=== PATIENT | female | born 2000 | race Caucasian/White ===

== ENCOUNTER 2020-05-12 05:03 | Emergency (ER) | payer OTHER ==
[2020-05-12] MEDS ORDERED: NA CHLORIDE 0.9% 1,000 ML ONE (05:59)
[2020-05-12] MEDS ORDERED: ONDANSETRON 4 MG/2 ML VIAL ONE (05:59)
[2020-05-12] MEDS ORDERED: MORPHINE 4 MG/ML SYR ONE (05:59)
[2020-05-12] MEDS ORDERED: TETANUS & DIPHTHERIA TOX,ADULT 0.5 ML VIAL ONE (06:00)
[2020-05-12 06:16] LABS: Absolute Lymphocytes (CBC) 3.5 K/uL (0.7-4.9); Basophils % 0.5 % (0-1.3); Hematocrit 40.3 % (36.0-45.0); Lymphocytes % 20.9 % (15.3-44.8); MPV 7.9 fL (7.6-11.3); RBC Red Blood Cell Count 4.51 M/uL (3.86-4.86)
[2020-05-12 06:33] LABS: BUN Blood Urea Nitrogen 15 mg/dL (7-18); Bicarbonate 24 mmol/L (21-32); Glucose Level 96 mg/dL (74-106); Potassium 3.8 mmol/L (3.5-5.1); Sodium Level 140 mmol/L (136-145)
[2020-05-12 06:51] LABS: Urine Blood 1+ (NEG); Urine Glucose NEGATIVE (NEG); Urine Protein NEGATIVE (NEG); Urine Specific Gravity >1.030 (1.005-1.030); Urine pH 5.5 (5.0-7.0)
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
[2020-05-12 08:04] VITALS: TEMP 99.2
[2020-05-12 08:05] VITALS: BP 103/52; O2SAT 99
== END 2020-05-12 07:59 | disposition home or self-care (01) ==
LOC: ER 05:03
DX: S30.1XXA Contusion of abdominal wall, initial encounter (principal); S90.31XA Contusion of right foot, initial encounter; N39.0 Urinary tract infection, site not specified; V47.5XXA Car driver injured in collision with fixed or stationary object in traffic accident, initial encounter; Z23 Encounter for immunization
CPT/HCPCS: 87088; 85025; 87086; 80048; 36415; 86900; 86850; 81025; 82565; 86901; 81003; 72131; 71260; 74177; 73630; 90714; Q9967; J7030; J2405; 90471; 96361; 96374; 96375; 99284

== ENCOUNTER 2021-10-02 00:10 | Emergency (ER) | payer BC ==
--- OUTSIDE RECORDS SUMMARY | 2021-10-02 00:13 | XMS REPORT | Continuity of Care Document ---
:2000 Author Organization [facility] t Address [address] [place] [address] [address] [place] [address] Care Team Providers Name Role Phone PCP, DOES NOT HAVE A Primary Care Physician Unavailable Chapito PONCE III Attending Clinician Unavailable Aleks RN, D Attending Clinician Unavailable Only, Db Test Attending Clinician Unavailable Sonya PARRAP, J Attending Clinician Payers Payer Name Policy Type Policy Number Effective Date Expiration Date S florinda [facility] [id number] 2020 00:00:00 Problems This patient has no known problems. Allergies, Adverse Reactions, Alerts Allergy Allergy Status Severity Reaction(s) Onset Inactive Treating Comm ents Source Name Type Date Date Clinician NO KNOWN Drug Active [facility] ALLERGIE [facility] Social History Social Habit Start Date Stop Date Quantity Comments Source Exposure to Yes [facility] SARS-CoV-2 (event) [facility] Sex Assigned At 2000 2000 [facility] 00:00:00 00:00:00 [facility] Smoking Status Start Date Stop Date Source Unknown if ever smoked [facility] Medications This patient has no known medications. Procedures This patient has no known procedures. Encounters Start End Encounter Admission Attending Care Care Encounter Source Date/Time Date/Time Type Type Clinicians Facility Department ID 2021-09-29 2021-09-29 Outpatient R KING DARCIE [facility] [id number] [facility] 15:00:00 15:45:01 TYRONE [facility] 2021-03-27 2021-03-27 Telephone FABIO Fink [id number] [facility] 00:00:00 00:00:00 Skyla CHARLES [id number] i ty of [facility] [id number] Onel as [id number] [address] 2021-03-25 2021-03-25 Laboratory Only, Ang Db Test COMB [id number] [facility] 18:04:26 18:14:26 Only Sonya, [id number] [id number] Onel as Ankit?Blea [id number] [address] Medical Office Building Results This patient has no known results.
[2021-10-02 01:28] LABS: Urine Blood Negative (Negative); Urine Glucose Negative (Negative); Urine Protein 1+ (Negative); Urine Specific Gravity >=1.030 (1.005-1.030)
[2021-10-02 01:30] LABS: Absolute Lymphocytes (CBC) 1.2 K/uL (0.7-4.9); Hematocrit 41.6 % (36.0-45.0); Lymphocytes % 13.4 % (15.3-44.8); MPV 7.9 fL (7.6-11.3); RBC Red Blood Cell Count 4.55 M/uL (3.86-4.86)
[2021-10-02 01:33] LABS: Urine Specific Gravity/Preg >1.030 (1.005-1.030)
[2021-10-02 01:50] LABS: ALT/SGPT 44 U/L (12-78); AST/SGOT 23 U/L (15-37); Albumin 3.9 g/dL (3.4-5.0); Alkaline Phosphatase 69 U/L (45-117); BUN Blood Urea Nitrogen 8 mg/dL (7-18); Bicarbonate 21 mmol/L (21-32); Bilirubin Total 0.3 mg/dL (0.2-1.0); Glucose Level 86 mg/dL (74-106); Lipase 59 U/L (73-393); Potassium 3.4 mmol/L (3.5-5.1); Protein, Total 7.9 g/dL (6.4-8.2); Sodium Level 136 mmol/L (136-145)
--- NOTE | 2021-10-02 03:35 | EDPHYS ---
Physician Documentation [facility] Name: Jo Garcia Age: 21 yrs Sex: Female : 2000 Arrival Date: 10/02/2021 Time: 00:12 Bed 18 Private MD: ED Physician Felix Perez HPI: 10/02 07:57 This 21 yrs old Female presents to ER via Ambulatory with complaints of kdr Abdominal Pain, diarrhea. 07:57 The patient presents with abdominal pain in the epigastric area, that is diffuse. kdr 07:58 Onset: The symptoms/episode began/occurred gradually, this morning, 3 month(s) ago. The kdr symptoms do not radiate. Associated signs and symptoms: none. Pertinent positives: nausea and vomiting, Pertinent negatives: blood in stools, chest pain, constipation, diarrhea, dysuria, fever, headache, hematuria, vaginal discharge, vomiting. The symptoms are described as achy, burning, crampy. Modifying factors: The symptoms are alleviated by nothing, the symptoms are aggravated by nothing. Severity of pain: At its worst the pain was very mild mild in the emergency department the pain is unchanged. 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 - Social history:: Smoking status: Reported history of juuling and/or vaping. ROS: 07:58 Constitutional: Negative for fever, chills, and weight loss, Eyes: Negative for injury, kdr pain, redness, and discharge, Neck: Negative for injury, pain, and swelling, Cardiovascular: Negative for chest pain, palpitations, and edema, Respiratory: Negative for shortness of breath, cough, wheezing, and pleuritic chest pain, Back: Negative for injury and pain, : Negative for injury, bleeding, discharge, and swelling, MS/Extremity: Negative for injury and deformity, Skin: Negative for injury, rash, and discoloration, Neuro: Negative for headache, weakness, numbness, tingling, and seizure activity. Psych: Negative for depression, anxiety, suicide ideation, homicidal ideation, and hallucinations, Allergy/Immunology: Negative for hives, rash, and allergies, Endocrine: Negative for neck swelling, polydipsia, polyuria, polyphagia, and marked weight changes, Hematologic/Lymphatic: Negative for swollen nodes, abnormal bleeding, and unusual bruising. 07:58 Abdomen/GI: Positive for abdominal pain, nausea and vomiting, Negative for rectal pain. Exam: 07:58 Constitutional: This is a well developed, well nourished patient who is awake, alert, kdr and in no acute distress. Head/Face: Normocephalic, atraumatic. Eyes: Pupils equal round and reactive to light, extra-ocular motions intact. Lids and lashes normal. Conjunctiva and sclera are non-icteric and not injected. Cornea within normal limits. Periorbital areas with no swelling, redness, or edema. Neck: Trachea midline, no thyromegaly or masses palpated, and no cervical lymphadenopathy. Supple, full range of motion without nuchal rigidity, or vertebral point tenderness. No Meningismus. Chest/axilla: Normal chest wall appearance and motion. Nontender with no deformity. No lesions are appreciated. Cardiovascular: Regular rate and rhythm with a normal S1 and S2. No gallops, murmurs, or rubs. Normal PMI, no JVD. No pulse deficits. Respiratory: Lungs have equal breath sounds bilaterally, clear to auscultation and percussion. No rales, rhonchi or wheezes noted. No increased work of breathing, no retractions or nasal flaring. Back: No spinal tenderness. No costovertebral tenderness. Full range of motion. Skin: Warm, dry with normal turgor. Normal color with no rashes, no lesions, and no evidence of cellulitis. MS/ Extremity: Pulses equal, no cyanosis. Neurovascular intact. Full, normal range of motion. Neuro: Awake and alert, GCS 15, oriented to person, place, time, and situation. Cranial nerves II-XII grossly intact. Motor strength 5/5 in all extremities. Sensory grossly intact. Cerebellar exam normal. Normal gait. Psych: Awake, alert, with orientation to person, place and time. Behavior, mood, and affect are within normal limits. 07:58 Abdomen/GI: Inspection: abdomen appears normal, Bowel sounds: Palpation: soft, nontender. Vital Signs: 00:26 BP 117 / 66; Pulse 84; Resp 18; Temp 98.2; Pulse Ox 98% ; Weight 95.25 kg; Height 5 ft. al4 4 in. (162.56 cm); Pain 8/10; 04:01 BP 120 / 68; Pulse 81; Resp 20; Pulse Ox 98% on R/A; sf1 00:26 Body Mass Index 36.05 (95.25 kg, 162.56 cm) al4 MDM: 03:35 Patient medically screened. kdr 07:58 Data reviewed: vital signs, nurses notes, lab test result(s), EKG, radiologic studies. kdr 10/02 00:41 Order name: CBC with Diff; Complete Time: 03:24 kdr 10/02 00:41 Order name: CMP; Complete Time: 03:24 kdr 10/02 00:41 Order name: Lipase; Complete Time: 03:24 kdr 10/02 01:28 Order name: Urine Dipstick-Ancillary [facility] 10/02 01:29 Order name: Urine --Ancillary (enter results); Complete Time: 03:24 [facility] 10/02 00:41 Order name: IV Saline Lock; Complete Time: 01:55 kdr 10/02 00:41 Order name: Labs collected and sent; Complete Time: 01:55 kdr 10/02 01:29 Order name: Urine Dipstick-Ancillary (obtain specimen); Complete Time: 01:30 mw2 10/02 01:29 Order name: Urine Test (obtain specimen); Complete Time: 01:29 2 10/02 01:47 Order name: Quantitative Hcg; Complete Time: 03:24 kdr Administered Medications: No medications were administered Disposition Summary: 10/02/21 03:35 Discharge Ordered Location: Home kdr Problem: new kdr Symptoms: have improved kdr Condition: Stable kdr Diagnosis - Abdominal pain, Generalized kdr - Lower abdominal pain, unspecified kdr - Threatened kdr Followup: kdr - With: Private Physician - When: 48 Hours - Reason: If symptoms return, Further diagnostic work-up, Recheck today's complaints, Continuance of care, Repeat Beta-HCG (48 Hours), Re-evaluation by your physician Discharge Instructions: - Discharge Summary Sheet kdr - Threatened Miscarriage kdr - Abdominal Pain, Adult, Kaln-yd-Etlm kdr Forms: - Medication Reconciliation Form kdr - Thank You Letter kdr Signatures: Dispatcher MedHoClovis Baptist HospitalFelix Hyman MD MD kdr Sonal Cervantes mw2 Aidan Hernadez al4
--- NOTE | 2021-10-02 03:35 | ER ---
Nurse's Notes [facility] Name: Jo Garcia Age: 21 yrs Sex: Female : 2000 Arrival Date: 10/02/2021 Time: 00:12 Bed 18 Private MD: Diagnosis: Abdominal pain, Generalized;Lower abdominal pain, unspecified;Threatened Presentation: 10/02 00:26 Chief complaint: Patient states: cramping and diarrhea "every 5 minutes" from 5am to al4 5pm. Coronavirus screen: Vaccine status: Patient reports receiving the 2nd dose of the covid vaccine. Ebola Screen: No symptoms or risks identified at this time. Initial Sepsis Screen: Does the patient meet any 2 criteria? No. Patient's initial sepsis screen is negative. Does the patient have a suspected source of infection? No. Patient's initial sepsis screen is negative. Risk Assessment: Do you want to hurt yourself or someone else? Patient reports no desire to harm self or others. Onset of symptoms was September 29, 2021. 00:26 Method Of Arrival: Ambulatory al4 00:26 Acuity: EVELYN 3 al4 Triage Assessment: 00:28 General: Appears in no apparent distress. uncomfortable, Behavior is calm, cooperative, al4 appropriate for age. Pain: Complains of pain in abdomen. Neuro: Level of Consciousness is awake, alert, obeys commands, Oriented to person, place, time, situation. Cardiovascular: Capillary refill < 3 seconds Patient's skin is warm and dry. Respiratory: Airway is patent Respiratory effort is unlabored, Respiratory pattern is regular. GI: Reports diarrhea, nausea. Musculoskeletal: Circulation, motion, and sensation intact. 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 - Social history:: Smoking status: Reported history of juuling and/or vaping. Screenin:55 Abuse screen: Denies threats or abuse. Nutritional screening: No deficits noted. sf1 Tuberculosis screening: No symptoms or risk factors identified. Fall Risk None identified. Assessment: 03:34 General: Appears in no apparent distress. Behavior is calm, cooperative, appropriate sf1 for age. GI: Reports diarrhea, nausea. Vital Signs: 00:26 BP 117 / 66; Pulse 84; Resp 18; Temp 98.2; Pulse Ox 98% ; Weight 95.25 kg; Height 5 ft. al4 4 in. (162.56 cm); Pain 8/10; 04:01 BP 120 / 68; Pulse 81; Resp 20; Pulse Ox 98% on R/A; sf1 00:26 Body Mass Index 36.05 (95.25 kg, 162.56 cm) al4 ED Course: 00:12 Patient arrived in ED. es 00:28 Triage completed. al4 00:30 Arm band placed on right wrist. al4 00:32 Felix Perez MD is Attending Physician. kdr 01:55 Therese Green, NATY is Primary Nurse. sf1 01:55 Patient has correct armband on for positive identification. sf1 01:55 Inserted saline lock: 20 gauge in right antecubital area, using aseptic technique. sf1 Blood collected. 03:34 No provider procedures requiring assistance completed. IV discontinued, intact, sf1 bleeding controlled, No redness/swelling at site. Pressure dressing applied. Administered Medications: No medications were administered Outcome: 03:34 Discharged to home ambulatory. sf1 03:34 Condition: good 03:34 Discharge instructions given to patient, Instructed on discharge instructions, follow up and referral plans. Demonstrated understanding of instructions, follow-up care. 03:35 Discharge ordered by . kdr 04:02 Patient left the ED. sf1 Signatures: Felix Perez MD MD kdr Salyer, Edna es Ledbetter, Alexis al4 Therese Green RN RN sf1 Corrections: (The following items were deleted from the chart) 00:29 00:28 GI: Reports nausea, al4 al4
[2021-10-02 05:08] VITALS: TEMP 98.2; O2SAT 98
[2021-10-02 05:09] VITALS: BP 120/68
== END 2021-10-02 04:02 | disposition home or self-care (01) ==
LOC: ER 00:10
DX: O20.0 Threatened abortion (principal); Z3A.00 Weeks of gestation of pregnancy not specified
CPT/HCPCS: 36415; 80053; 81003; 81025; 83690; 84702; 85025; 99283

== ENCOUNTER 2021-10-03 23:22 | Emergency (ER) | payer BC ==
--- OUTSIDE RECORDS SUMMARY | 2021-10-03 23:24 | XMS REPORT | Continuity of Care Document ---
:2000 Author Organization [facility] t Address [address] [place] [address] Care Team Providers Name Role Phone Pcp, Does Not Have A Primary Care Physician Chapito PONCE III Attending Clinician Unavailable Aleks ALFONSO, Rickie Attending Clinician Unavailable Only, Db Test Attending Clinician Unavailable Sonya JORDAN, J Attending Clinician Payers Payer Name Policy Type Policy Number Effective Date Expiration Date S [facility] [id number] 2020 00:00:00 Problems This patient has no known problems. Allergies, Adverse Reactions, Alerts Allergy Allergy Status Severity Reaction(s) Onset Inactive Treating Comm ents Source Name Type Date Date Clinician NO KNOWN Drug Active [facility] ALLERGIE Class [facility] Social History Social Habit Start Date Stop Date Quantity Comments Source Exposure to Yes [facility] SARS-CoV-2 (event) [facility] Sex Assigned At 2000 2000 [facility] 00:00:00 00:00:00 [facility] Smoking Status Start Date Stop Date Source Unknown if ever smoked [facility] Medications This patient has no known medications. Procedures This patient has no known procedures. Encounters Start End Encounter Admission Attending Care Care Encounter Source Date/Time Date/Time Type Type Clinicians Facility Department ID 2021-09-29 2021-09-29 Outpatient R KING DARCIE [facility] [id number] [facility] 15:00:00 15:45:01 TYRONE [facility] 2021-03-27 2021-03-27 Telephone FABIO Fink [id number] [facility] 00:00:00 00:00:00 Skyla D MELVIN [id number] i ty of [facility] [id number] Onel as [id number] [address] 2021-03-25 2021-03-25 Laboratory Only, Ang Db Test [facility] 1.2.8 [id number] [id number] [facility] 18:04:26 18:14:26 Only Kely Hassan [facility] [id number] [facility] [id number] Onel as Ankit?Blea [id number] [address] Medical Office Building Results This patient has no known results.
--- NOTE | 2021-10-04 00:57 | ER ---
Nurse's Notes [facility] Name: Jo Garcia Age: 21 yrs Sex: Female : 2000 Arrival Date: 10/03/2021 Time: 23:25 Bed 11 Private MD: Diagnosis: Less than 8 weeks gestation of -encounter for beta hcg lab test Presentation: 10/03 23:53 Chief complaint: Patient states: I came to the ER 3 days ago and the told me to ld1 come back and get my hcg level rechecked. Coronavirus screen: At this time, the client does not indicate any symptoms associated with coronavirus-19. Ebola Screen: No symptoms or risks identified at this time. Initial Sepsis Screen: Does the patient meet any 2 criteria? No. Patient's initial sepsis screen is negative. Does the patient have a suspected source of infection? No. Patient's initial sepsis screen is negative. Risk Assessment: Do you want to hurt yourself or someone else? Patient reports no desire to harm self or others. Onset of symptoms was October 03, 2021. 23:53 Method Of Arrival: Ambulatory ld1 23:53 Acuity: EVELYN 4 ld1 Triage Assessment: 23:54 General: Appears in no apparent distress. comfortable, Behavior is calm, cooperative, ld1 appropriate for age. Pain: Denies pain. EENT: No signs and/or symptoms were reported regarding the EENT system. Neuro: Level of Consciousness is awake, alert, obeys commands, Oriented to person, place, time, situation. Cardiovascular: Capillary refill < 3 seconds Patient's skin is warm and dry. Respiratory: Airway is patent Respiratory effort is even, unlabored, Respiratory pattern is regular, symmetrical. GI: Abdomen is flat, non-distended. : No signs and/or symptoms were reported regarding the genitourinary system. Derm: No signs and/or symptoms reported regarding the dermatologic system. Musculoskeletal: No signs and/or symptoms reported regarding the musculoskeletal system. 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 - Social history:: Smoking status: Reported history of juuling and/or vaping. Patient/guardian denies using alcohol, street drugs. Screenin/21 00:23 Abuse screen: Denies threats or abuse. Nutritional screening: No deficits noted. vc1 Tuberculosis screening: No symptoms or risk factors identified. Fall Risk None identified. Assessment: 00:23 General: Appears in no apparent distress. comfortable, Behavior is calm, cooperative, vc1 appropriate for age. Neuro: Level of Consciousness is awake, alert, obeys commands, Oriented to person, place, time, situation, Appropriate for age. Cardiovascular: No deficits noted. Respiratory: No deficits noted. GI: No deficits noted. Vital Signs: 10/03 23:53 BP 121 / 72; Pulse 79; Resp 18; Temp 97.9(TE); Pulse Ox 100% on R/A; Weight 96.16 kg; ld1 Height 5 ft. 4 in. (162.56 cm); Pain 0/10; 23:53 Body Mass Index 36.39 (96.16 kg, 162.56 cm) ld1 ED Course: 23:25 Patient arrived in ED. es 23:39 Gaudencio Ellsworth NP is PHCP. pm1 23:39 Pawan Alvarado DO is Attending Physician. pm1 23:54 Triage completed. ld1 23:54 Arm band placed on right wrist. ld1 10/04 00:24 Patient has correct armband on for positive identification. Bed in low position. Call vc1 light in reach. Administered Medications: No medications were administered Outcome: 00:56 Discharge ordered by . pm1 01:12 Patient left the ED. vc1 Signatures: Minoo Albarado Patrick, NP SEISMOGRAPH OBSERVER pm1 Yi Bueno RN RN ld1 Tanna Licona RN RN vc1
--- NOTE | 2021-10-04 00:57 | EDPHYS ---
Physician Documentation [facility] Name: Jo Garcia Age: 21 yrs Sex: Female : 2000 Arrival Date: 10/03/2021 Time: 23:25 Bed 11 Private MD: ED Physician Pawan Alvarado HPI: 10/03 23:58 This 21 yrs old Female presents to ER via Ambulatory with complaints of pm1 Recheck hcg. 23:58 Patient presenting to the ER for requests repeat beta-hCG. Patient was seen here 2 days pm1 ago and was found to be . Patient presented to the ER for abdominal pain at that time. She was not aware of her . Patient with uncertain weeks of but states that first day of last menstrual cycle is August 30. Severity of symptoms: Pain is currently a 0 / 10. The patient has not experienced similar symptoms in the past. P1GO. Patient presenting to the ER here today with no complaints except for repeat beta-hCG prior beta-hCG was 200. 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 - Social history:: Smoking status: Reported history of juuling and/or vaping. Patient/guardian denies using alcohol, street drugs. ROS: 23:58 Constitutional: Negative for fever, chills, and weight loss, Cardiovascular: Negative pm1 for chest pain, palpitations, and edema, Respiratory: Negative for shortness of breath, cough, wheezing, and pleuritic chest pain, Abdomen/GI: Negative for abdominal pain, nausea, vomiting, diarrhea, and constipation, Back: Negative for injury and pain, : Negative for injury, bleeding, discharge, and swelling, MS/Extremity: Negative for injury and deformity, Skin: Negative for injury, rash, and discoloration, Neuro: Negative for headache, weakness, numbness, tingling, and seizure. 23:58 All other systems are negative. Exam: 23:58 Constitutional: This is a well developed, well nourished patient who is awake, alert, pm1 and in no acute distress. Head/Face: Normocephalic, atraumatic. 23:58 Back: No spinal tenderness. No costovertebral tenderness. Full range of motion. Skin: Warm, dry with normal turgor. Normal color with no rashes, no lesions, and no evidence of cellulitis. MS/ Extremity: Pulses equal, no cyanosis. Neurovascular intact. Full, normal range of motion. 23:58 Cardiovascular: Exam negative for acute changes, Rate: normal, Rhythm: regular, Pulses: no pulse deficits are appreciated. 23:58 Respiratory: Exam negative for acute changes, respiratory distress, shortness of breath. 23:58 Abdomen/GI: Exam negative for acute changes, Inspection: abdomen appears normal, Palpation: abdomen is soft and non-tender, in all quadrants. 23:58 Neuro: Exam negative for acute changes, Orientation: is normal, Mentation: is normal, Motor: is normal, moves all fours. Vital Signs: 23:53 BP 121 / 72; Pulse 79; Resp 18; Temp 97.9(TE); Pulse Ox 100% on R/A; Weight 96.16 kg; ld1 Height 5 ft. 4 in. (162.56 cm); Pain 0/10; 23:53 Body Mass Index 36.39 (96.16 kg, 162.56 cm) ld1 MDM: 23:58 Patient medically screened. pm1 03 00:53 Data reviewed: vital signs. Data interpreted: Pulse oximetry: on room air is 100 %. pm1 Interpretation: normal. Counseling: I had a detailed discussion with the patient and/or guardian regarding: the historical points, exam findings, and any diagnostic results supporting the discharge/admit diagnosis, lab results, the need for outpatient follow up, an OB/Gyne specialist, to return to the emergency department if symptoms worsen or persist or if there are any questions or concerns that arise at home. 00:53 Differential Diagnosis Early , ectopic , abdominal pain. ED course: pm1 Patient without abdominal pain or any complaints today except for repeat beta-hCG. Patient's beta-hCG from 2 days ago was 200 and today it is 400. No abdominal or pelvic pain no vaginal bleeding. Impression is early . 10/03 23:41 Order name: HCG-Quantitative; Complete Time: 00:51 pm1 Administered Medications: No medications were administered Disposition: 02:39 Co-signature as Attending Physician, Pawan Alvarado DO I agree with the assessment and ms3 plan of care. Disposition Summary: 10/04/21 00:56 Discharge Ordered Location: Home pm1 Problem: new pm1 Symptoms: have improved pm1 Condition: Stable pm1 Diagnosis - Less than 8 weeks gestation of - encounter for beta hcg lab test pm1 Followup: pm1 - With: Emergency Department - When: As needed - Reason: Worsening of condition Followup: pm1 - With: Private Physician - When: 2 - 3 days - Reason: Recheck today's complaints, Continuance of care, Re-evaluation by your physician Forms: - Medication Reconciliation Form pm1 - Thank You Letter pm1 - Antibiotic Education pm1 - Prescription Opioid Use pm1 Signatures: Dispatcher [employer] Gaudencio Stevens NP SHOVEL OILER pm1 Pawan Alvarado DO DO ms3 Yi Bueno RN RN ld1
[2021-10-04 04:41] VITALS: BP 121/72; TEMP 97.9; O2SAT 100
== END 2021-10-04 01:12 | disposition home or self-care (01) ==
LOC: ER 23:22
DX: Z32.01 Encounter for pregnancy test, result positive (principal)
CPT/HCPCS: 36415; 84702; 99281

== ENCOUNTER 2022-05-14 23:21 | Emergency (ER) | payer BC ==
--- OUTSIDE RECORDS SUMMARY | 2022-05-14 23:24 | XMS REPORT | Continuity of Care Document ---
:2000 Author Organization [facility] t Address [address] [place] [address] Care Team Providers Name Role Phone PCP, PATIENT DOES NOT HAVE A Primary Care Physician Unavaila Alirio Salguero Attending Clinician ALIRIO RODRIGEZ Attending Clinician Unavailable Provider, [facility] Attending Clinician Unavailable Alexus Chauhan Attending Clinician ALEXUS AMEZCUA Attending Clinician Unavailable Doctor Unassigned, [place] Attending Clinician Unavailable TYRONE PONCE III Attending Clinician Unavailable Payers Payer Name Policy Type Policy Number Effective Date Expiration Date S ource Problems Condition Condition Condition Status Onset Resolution Last Treating Co mments Source Name Details Category Date Date Treatment Clinician Date No known No known Disease Unive rs active active ity of problems problems [facility] Allergies, Adverse Reactions, Alerts Allergy Allergy Status Severity Reaction(s) Onset Inactive Treating Comm ents Source Name Type Date Date Clinician NO KNOWN Drug Active Univers ALLERGIE Class ity of S [facility] Social History Social Habit Start Date Stop Date Quantity Comments Source Exposure to 2022-03-19 2022-03-29 Not sure [facility]-CoV-2 00:00:00 14:49:00 [facility] (event) [place] Alcohol intake 2022-03-06 2022-03-06 [facility] of 00:00:00 00:00:00 non-drinker [facility] (finding) [place] Tobacco use and 2021-09-29 2021-09-29 Smokeless tobacco Un iversity of exposure 00:00:00 00:00:00 non-user [facility] Sex Assigned At [birth year] Universit y of 00:00:00 00:00:[address] [facility] Smoking Status Start Date Stop Date Source Never smoked tobacco [facility] Medications Ordered Filled Start Stop Current Ordering Indication Dosage Frequency Signature Comments Components Source Medication Medication Date Date Medication? Clinician (SIG) Name Name cefdinir 2021- Yes [id number] 600mg Take 2 [facility] 300 mg 03-29 capsules ity of capsule 00:00: 04:59 by mouth [place] 00 :00 in the [facility] for 10 days. cefdinir 2021- Yes [id number] 600mg Take 2 [facility] 300 mg 03-29 capsules ity of capsule 00:00: 04:59 by mouth [place] 00 :00 in the [facility] for 10 days. ciprofloxac 2021- Yes [id number] 2[drp] Place 2 Univers in HCl 0.3 8-21 08-29 Drops in ity of % opthalmic 00:00: 04:59 both eyes [place] drops 00 :00 every 4 Medical (four) Branch hours for 7 days. ciprofloxac 2021- Yes [id number] 2[drp] Place 2 Univers in HCl 0.3 8-21 08-29 Drops in ity of % opthalmic 00:00: 04:59 both eyes [place] drops 00 :00 every 4 Medical (four) Branch hours for 7 days. ciprofloxac 2021- Yes [id number] 2[drp] Place 2 Univers in HCl 0.3 8-21 08-29 Drops in ity of % opthalmic 00:00: 04:59 both eyes [place] drops 00 :00 every 4 Medical (four) Branch hours for 7 days. ondansetron Yes [id number] 4mg Take 1 Univers 4 mg tablet 3-16 tablet by ity of 00:00: mouth [place] 00 every 8 Medical (eight) Branch hours as needed for Nausea and Vomiting (N/V). ondansetron Yes [id number] 4mg Take 1 Univers 4 mg tablet 3-16 tablet by ity of 00:00: mouth [place] 00 every 8 Medical (eight) Branch hours as needed for Nausea and Vomiting (N/V). ondansetron 2-0 Yes [id number] 4mg Take 1 Univers 4 mg tablet 3-16 tablet by ity of 00:00: mouth [place] 00 every 8 Medical (eight) Branch hours as needed for Nausea and Vomiting (N/V). ondansetron 2021-0 Yes [id number] 4mg Take 1 Univers 4 mg tablet 3-16 tablet by ity of 00:00: mouth [place] 00 every 8 Medical (eight) Branch hours as needed for Nausea and Vomiting (N/V). ondansetron 2021-0 Yes [id number] 4mg Take 1 Univers 4 mg tablet 3-16 tablet by ity of 00:00: mouth [place] 00 every 8 Medical (eight) Branch hours as needed for Nausea and Vomiting (N/V). ondansetron 2021-0 Yes [id number] 4mg Take 1 Univers 4 mg tablet 3-16 tablet by ity of 00:00: mouth [place] 00 every 8 Medical (eight) Branch hours as needed for Nausea and Vomiting (N/V). Vital Signs Vital Name Observation Time Observation Value Comments Source Systolic blood 2022-03-29 19:50:00 119 mm[Hg] [facility] Diastolic blood 2022-03-29 19:50:00 77 mm[Hg] [facility] Heart rate 2022-03-29 19:50:00 86 /min [facility] Body temperature 2022-03-29 19:50:00 37.28 Marlyn [facility] Respiratory rate 2022-03-29 19:50:00 18 /min [facility] Body height 2022-03-29 19:50:00 162.6 cm [facility] Body weight 2022-03-29 19:50:00 96.163 kg [facility] BMI 2022-03-29 19:50:00 36.39 kg/m2 [facility] Oxygen saturation in 2022-03-29 19:50:00 98 /min [facility] Arterial blood by [facility] Pulse oximetry Branch Systolic blood 2022-03-06 17:26:00 115 mm[Hg] [facility] Diastolic blood 2022-03-06 17:26:00 76 mm[Hg] Unive rsity of pressure [facility] Heart rate 2022-03-06 17:26:00 88 /min [facility] Body temperature 2022-03-06 17:26:00 37.06 Marlyn [facility] 2022-03-06 17:26:00 16 /min [facility] Body height 2022-03-06 17:26:00 162.6 cm [facility] Body weight 2022-03-06 17:26:00 97.07 kg [facility] BMI 2022-03-06 17:26:00 36.73 kg/m2 [facility] Oxygen saturation in 2022-03-06 17:26:00 97 /min [facility] blood by [facility] Pulse oximetry Branch Procedures Procedure Date / Time Performed Performing Clinician [facility] e ASSIGNMENT OF BENEFITS 2022-03-06 17:21:57 Doctor Unassigned, No [facility] Encounters Start End Encounter Admission Attending Care Care Encounter Source Date/Time Date/Time Type Type Clinicians Facility Department ID 2022-03-29 2022-03-29 Urgent Huyenprbrenden, [facility] [id number] Univers 14:40:00 15:00:00 Care [facility] [employer] [id number] it y of [place] [id number] Onel as SEBASTIAN?BLEA [id number] [address] MEDICAL OFFICE BUILDING 2022-03-29 2022-03-29 Outpatient R RAIN [facility] [id number] Univers 14:40:00 14:40:[address] [facility] 2022-03-29 2022-03-29 Letter Provider, [facility] [id number] Univers 00:00:00 00:00:00 (Out) Ang [employer] [id number] it y of Urgent Care [facility] [id number] [place] SEBASTIAN?BLEA [id number] [address] MEDICAL OFFICE BUILDING 2022-03-06 2022-03-06 Urgent [facility] [id number] Univers 12:40:00 13:00:00 Care Alexus HEALTH [id number] i ty of [facility] [id number] Onel as SEBASTIAN?BLEA [id number] [address] MEDICAL OFFICE BUILDING 2022-03-06 2022-03-06 [facility] [id number] Univers 12:40:00 12:40:00 ALEXUS serranoy o f [facility] 2022-03-06 2022-03-06 Orders Doctor FABIO [id number] Univers 00:00:00 00:00:00 Only Unassigned, MELVIN [id number] ity of [place] [facility] [id number] Onel as [id number] [address] 2022-03-06 2022-03-06 Letter Provider, [facility] [id number] Univers 00:00:00 00:00:00 (Out) Ang Db HEALTH [id number] it y of Urgent Care [facility] [id number] [place] SEBASTIAN?BLEA [id number] [address] MEDICAL OFFICE BUILDING 2022-03-06 2022-03-06 Letter Provider, [facility] [id number] Univers 00:00:00 00:00:00 (Out) Ang Db HEALTH [id number] it y of Urgent Care [place] [id number] [place] SEBASTIAN?BLEA [id number] [address] MEDICAL OFFICE BUILDING 2021-09-29 2021-09-29 [facility] [id number] Univers 15:00:00 15:45:01 TYRONE navarrete of [facility] Results This patient has no known results.
[2022-05-15] MEDS ORDERED: MORPHINE 4 MG/ML SYR ONE (00:19)
[2022-05-15 00:24] LABS: Urine Blood Negative (Negative); Urine Glucose Negative (Negative); Urine Protein Negative (Negative)
--- NOTE | 2022-05-15 00:47 | ER ---
Nurse's Notes [facility] Name: Jo Garcia Age: 21 yrs Sex: Female : 2000 Arrival Date: 05/14/2022 Time: 23:23 Bed 5 Private MD: Diagnosis: Sprain of unspecified site of right knee, initial encounter Presentation: 05/14 23:32 Chief complaint: Patient states: "I think I dislocated my knee cap. I tripped and tw5 fell.". Coronavirus screen: Vaccine status: Patient reports receiving the 2nd dose of the covid vaccine. Adocia. Ebola Screen: Patient negative for fever greater than or equal to 101.5 degrees Fahrenheit, and additional compatible Ebola Virus Disease symptoms Patient denies exposure to infectious person. Patient denies travel to an Ebola-affected area in the 21 days before illness onset. Initial Sepsis Screen: Does the patient meet any 2 criteria? No. Patient's initial sepsis screen is negative. Does the patient have a suspected source of infection? No. Patient's initial sepsis screen is negative. Risk Assessment: Do you want to hurt yourself or someone else? Patient reports no desire to harm self or others. Onset of symptoms was May 14, 2022 at 11:00. 23:32 Method Of Arrival: Wheelchair tw5 23:32 Acuity: EVELYN 3 tw5 Triage Assessment: 23:34 General: Appears uncomfortable, obese, Behavior is anxious, crying. Pain: Complains of tw5 pain in right leg Pain currently is 10 out of 10 on a pain scale. Musculoskeletal: Range of motion: limited in right knee. 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 - Social history:: Smoking status: Reported history of juuling and/or vaping. Screenin/30 00:27 Abuse screen: Denies threats or abuse. Denies injuries from another. Nutritional as6 screening: No deficits noted. Tuberculosis screening: No symptoms or risk factors identified. Fall Risk None identified. Assessment: 00:28 General: Appears uncomfortable, Behavior is cooperative, crying. Pain: Complains of as6 pain in right knee. Neuro: Level of Consciousness is awake, alert, obeys commands, Oriented to person, place, time, situation. Respiratory: Respiratory effort is even, unlabored. Musculoskeletal: Swelling present in right leg Reports pain in right knee. Vital Signs: 05/14 23:32 BP 135 / 88; Pulse 94; Resp 22; Temp 98.4; Pulse Ox 99% on R/A; Weight 90.72 kg; Height tw5 5 ft. 4 in. (162.56 cm); Pain 04/25; 05/15 01:18 BP 126 / 86; Pulse 87; Resp 18 S; Pulse Ox 100% on R/A; as6 05/14 23:32 Body Mass Index 34.33 (90.72 kg, 162.56 cm) tw5 ED Course: 05/14 23:23 Patient arrived in ED. bp1 23:25 Martin Turcios PA is PHCP. cp 23:25 Gabriela Reagan MD is Attending Physician. cp 23:34 Triage completed. tw5 23:34 Arm band placed on right wrist. tw5 23:45 Patient has correct armband on for positive identification. Placed in gown. Bed in low mm9 position. Call light in reach. Side rails up X2. Adult w/ patient. Warm blanket given. Pulse ox on. NIBP on. 23:49 Jakub Mckeon, RN is Primary Nurse. as6 05/15 00:14 XRAY Tib Fib RIGHT In Process Unspecified. EDMS 00:14 XRAY Knee RIGHT 3 view In Process Unspecified. EDMS 00:46 Sajan Acosta MD is Referral Physician. cp 01:19 No provider procedures requiring assistance completed. Patient did not have IV access as6 during this emergency room visit. Crutch training done. Knee immobilizer applied on right knee. Administered Medications: 00:27 Drug: morphine 8 ml Route: IM; Site: right vastus lateralis; as6 01:19 Follow up: Response: No adverse reaction as6 Medication: 00:28 VIS not applicable for this client. as6 Outcome: 00:46 Discharge ordered by . cp 01:14 Patient left the ED. mw2 01:19 Discharged to home via wheelchair, with family. as6 01:19 Condition: stable 01:19 Discharge instructions given to patient, family, Instructed on discharge instructions, follow up and referral plans. medication usage, crutch walking, Demonstrated understanding of instructions, follow-up care, medications, crutch walking, Prescriptions given X 1. Signatures: Dispatcher [employer] EDMS Martin Turcios PA PA cp [place], MyKena mw2 Alexus Dietrich Tiffany tw5 Jakub Mckeon RN RN as6 Meena Bragg mm9
--- NOTE | 2022-05-15 00:47 | EDPHYS ---
Physician Documentation [facility] Name: Jo Garcia Age: 21 yrs Sex: Female : 2000 Arrival Date: 05/14/2022 Time: 23:23 Bed 5 Private MD: ED Physician Gabriela Reagan HPI: 05/14 23:45 This 21 yrs old Female presents to ER via Wheelchair with complaints of Leg cp Injury, Knee Injury. 23:45 The patient presents with an injury, pain, that is acute. The complaints affect the cp right kneeand right lower leg. Context: resulted from the patient falling, while walking, the patient is not able to bear weight, the patient is not able to ambulate, must have assistance, Problem is a result from a previous injury: No. Onset: The symptoms/episode began/occurred just prior to arrival. Associated signs and symptoms: The patient has no apparent associated signs or symptoms. 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 - Social history:: Smoking status: Reported history of juuling and/or vaping. ROS: 23:50 MS/extremity: Positive for injury or acute deformity, decreased range of motion, pain, cp of the right knee and right lower leg, Negative for paresthesias. 23:50 Constitutional: Negative for body aches, chills, fever, poor PO intake. cp 23:50 Neck: Negative for pain with movement, pain at rest, stiffness. 23:50 Cardiovascular: Negative for chest pain. 23:50 Respiratory: Negative for cough, shortness of breath, wheezing. 23:50 Back: Negative for pain at rest, pain with movement. 23:50 Neuro: Negative for altered mental status, headache, loss of consciousness, weakness. 23:50 All other systems are negative. Exam: 23:55 Constitutional: The patient appears in no acute distress, alert, awake, non-toxic, well cp developed, well nourished, in obvious pain, uncomfortable. 23:55 Head/Face: Normocephalic, atraumatic. cp 23:55 Neck: C-spine: vertebral tenderness, is not appreciated, crepitus, is not appreciated, ROM/movement: is normal, is supple, without pain, no range of motions limitations. 23:55 Chest/axilla: Inspection: normal. 23:55 Cardiovascular: Rate: normal. 23:55 Respiratory: the patient does not display signs of respiratory distress, Respirations: normal, no use of accessory muscles, no retractions, labored breathing, is not present. 23:55 Abdomen/GI: Inspection: abdomen appears normal, Palpation: abdomen is soft and non-tender, in all quadrants. 23:55 Back: pain, is absent, ROM is normal. 23:55 Musculoskeletal/extremity: Extremities: grossly normal except: noted in the right knee: pain, mild swelling, marked tenderness along medial and lateral joint, There is no evidence of decreased ROM, deformity, ROM: limited passive range of motion due to pain, in the right knee, Perfusion: the extremity is normally perfused throughout, the right knee Severe pain noted. Vital Signs: 23:32 BP 135 / 88; Pulse 94; Resp 22; Temp 98.4; Pulse Ox 99% on R/A; Weight 90.72 kg; Height tw5 5 ft. 4 in. (162.56 cm); Pain 04/25; 05/15 01:18 BP 126 / 86; Pulse 87; Resp 18 S; Pulse Ox 100% on R/A; as6 05/14 23:32 Body Mass Index 34.33 (90.72 kg, 162.56 cm) tw5 Procedures: 01:00 Splinting: Splint applied to right knee using knee immobilizer, applied by nurse. cp Examined by me, post splint application: neurovascular intact, Patient tolerated well. MDM: 05/14 23:44 Patient medically screened. cp 05/15 00:45 Data reviewed: vital signs, nurses notes, radiologic studies, plain films. cp 00:45 Differential diagnosis: dislocation, closed fracture, contusion, ligament injury. Test cp interpretation: by ED physician or midlevel provider: plain radiologic studies. Counseling: I had a detailed discussion with the patient and/or guardian regarding: the historical points, exam findings, and any diagnostic results supporting the discharge/admit diagnosis, radiology results, the need for outpatient follow up, a orthopedic surgeon, to return to the emergency department if symptoms worsen or persist or if there are any questions or concerns that arise at home. Response to treatment: the patient's symptoms have markedly improved after treatment, and as a result, I will discharge patient. 05/15 00:24 Order name: Urine --Ancillary (enter results); Complete Time: 00:44 mw2 05/15 00:24 Order name: Urine Dipstick-Ancillary; Complete Time: 00:44 EDMS 05/14 23:38 Order name: XRAY Tib Fib RIGHT cp 05/14 23:38 Order name: XRAY Knee RIGHT 3 view cp 05/14 23:39 Order name: Urine Dipstick-Ancillary (obtain specimen); Complete Time: 00:23 cp 05/14 23:39 Order name: Urine Test (obtain specimen); Complete Time: 00:23 cp 05/15 00:20 Order name: Knee Immobilizer; Complete Time: 01:20 cp 05/15 00:20 Order name: Crutches; Complete Time: 01:20 cp Administered Medications: 00:27 Drug: morphine 8 ml Route: IM; Site: right vastus lateralis; as6 01:19 Follow up: Response: No adverse reaction as6 Disposition Summary: 05/15/22 00:46 Discharge Ordered Location: Home cp Problem: new cp Symptoms: have improved cp Condition: Stable cp Diagnosis - Sprain of unspecified site of right knee, initial encounter cp Followup: cp - With: Sajan Acosta MD - When: 2 - 3 days - Reason: right knee injury Discharge Instructions: - Discharge Summary Sheet cp - How to Use a Knee Immobilizer cp - Knee Sprain, Adult cp Forms: - Medication Reconciliation Form cp - Thank You Letter cp - Antibiotic Education cp - Prescription Opioid Use cp Prescriptions: - Diclofenac Sodium 75 mg Oral Tablet Sustained Release - take 1 tablet by ORAL route 2 times per day; 30 tablet; Refills: 0, Product cp Selection Permitted Signatures: Dispatcher [employer] EDMartin Pack PA PA cp Wood, Tiffany tw5 Jakub Mckeon, NATY RN as6
[2022-05-15 01:21] VITALS: BP 135/88; TEMP 98.4; O2SAT 99
--- NOTE | 2022-05-17 15:17 | RAD REPORT ---
EXAM DESCRIPTION: RAD - Knee Right 3 View - 05/15/2022 12:11 am CLINICAL HISTORY: 21 years, Female, fa COMPARISON: None. FINDINGS: 3 X-ray views of the tiny (Frontal, lateral and oblique views) were performed. There is no evidence for fracture or dislocation. There are no gross intraosseous lesions. No lisa ss articular or soft tissue abnormality is identified. There is no joint effusion. There is no pe riostitis. IMPRESSION: No acute osseous abnormality. Electronically signed by: Massimo Day MD 05/15/2022 1:38 AM CDT Due to temporary technical issues with the PACS/Fluency reporting system, reports are being signed by the in house radiologists without review as a courtesy to insure prompt reporting. The interpreting radiologist is fully responsible for the content of the report.
--- NOTE | 2022-05-17 15:18 | RAD REPORT ---
EXAM DESCRIPTION: RAD - Tib Fib Right - 05/15/2022 12:11 am CLINICAL HISTORY: 21 years, Female, PAIN COMPARISON: None. FINDINGS: 2 X-ray views of the right tibia and fibula (frontal and lateral views) were performed. No acute bony injuries were demonstrated. No gross articular or soft tissue abnormality is identifi ed. There are no gross intraosseous lesions. No periosteal reaction were seen. IMPRESSION: No acute bony injuries were demonstrated. Electronically signed by: Massimo Day MD 05/15/2022 1:23 AM CDT Due to temporary technical issues with the PACS/Fluency reporting system, reports are being signed by the in house radiologists without review as a courtesy to insure prompt reporting. The interpreting radiologist is fully responsible for the content of the report.
== END 2022-05-15 01:14 | disposition home or self-care (01) ==
LOC: ER 23:21
DX: S83.91XA Sprain of unspecified site of right knee, initial encounter (principal)
CPT/HCPCS: 81003; 81025; 96372; 99284